=== PATIENT | female | born 2005 | race Two or more races ===

== ENCOUNTER 2025-02-10 13:57 | Emergency (ER) | payer OTHER, SELFPAY ==
[2025-02-10] MEDS ORDERED: PRENTAB9 PO (14:25)
[2025-02-10] MEDS ORDERED: ACET500P3 PO (14:25)
[2025-02-10] MEDS ORDERED: FERR324T21 PO (16:46)
== END 2025-02-10 14:03 | disposition admitted as inpatient to this hospital (09) ==
LOC: M ED 13:57
DX: Z53.21 Procedure and treatment not carried out due to patient leaving prior to being seen by health care provider (principal)

== ENCOUNTER 2025-02-10 14:10 | Outpatient (CLI) | payer OTHER ==
[~2025-02-10] VITALS: Ht 167.6 cm; Wt 60.9 kg
[2025-02-10] MEDS ORDERED: HOME MED LIST COMPLETE! XX SCH (14:25)
[2025-02-10] MEDS ORDERED: ACET500P3 PO (14:25)
[2025-02-10] MEDS ORDERED: PRENTAB9 PO (14:25)
[2025-02-10 14:46] VITALS: BP 109/59
[2025-02-10 15:14] LABS: APPEARANCE, URINE HAZY (CLEAR); BACTERIA, URINE AUTO NEGATIVE (NEGATIVE); BILIRUBIN, URINE AUTO NEGATIVE (NEGATIVE); BLOOD, URINE BLOOD NEGATIVE (NEGATIVE); GLUCOSE, URINE (UA) AUTO NEGATIVE (NEGATIVE); KETONE, URINE AUTO NEGATIVE (NEGATIVE); LEUKOCYTE ESTERASE, URINE AUTO 1+ (NEGATIVE); MUCUS, URINE LARGE (NEGATIVE); NITRITE, URINE AUTO NEGATIVE (NEGATIVE); PROTEIN, URINE AUTO 1+ mg/dL (NEGATIVE); RBC, URINE AUTO 1 /HPF (0-3); SPECIFIC GRAVITY URINE AUTO 1.025 (1.002-1.035); SQUAMOUS EPITHELIAL CELL UR AU 11 /HPF (0-6); UROBILINOGEN, URINE AUTO 2.0 mg/dL (0.0-2.0); WBC, URINE AUTO 11 /HPF (0-3)
[2025-02-10] MEDS: ONDANSETRON 4MG ORAL DISINTEGRATING TAB SL SCH (15:27)
[2025-02-10] MEDS: ACETAMINOPHEN 500 MG TAB PO ONE (15:39)
[2025-02-10 15:43] VITALS: BP 109/59
[2025-02-10 16:03] LABS: BASO # 0.0 10^3/uL (0.0-0.2); BASO % 0.4 % (0.0-1.0); EOS # 0.1 10^3/uL (0.0-0.5); EOS % 0.7 % (0.0-3.0); LYMPH # 1.4 10^3/uL (1.5-5.0); LYMPH % 18.8 % (24.0-44.0); MONO # 0.6 10^3/uL (0.0-0.8); MONO % 7.8 % (2.0-8.0); NEUTROPHILS # 5.4 10^3/uL (1.5-8.5); NEUTROPHILS % 71.6 % (36.0-66.0); PLATELET COUNT, AUTOMATED 275 10^3/uL (150-450)
[2025-02-10] MEDS ORDERED: FERR324T21 PO (16:46)
[2025-02-10 16:55] LABS: HIV 1&2 SCREEN NEGATIVE (NEGATIVE)
[2025-02-10 17:04] LABS: HEPATITIS C VIRUS ABY INDEX < 0.02 INDEX (<0.8)
[2025-02-10 21:01] LABS: Trichomonas vaginalis (AMP) NOT DETECTED (NEGATIVE)
[2025-02-10 21:25] LABS: GC DNA AMPLIFICATION NEGATIVE (NEGATIVE)
[2025-02-13] MEDS ORDERED: AZIT500T5 PO (18:03)
== END 2025-02-10 16:47 | disposition home or self-care (01) ==
LOC: M LDO 14:10
PROVIDERS: ATTEND Advanced Practice Midwife
DX: O26.892 Other specified pregnancy related conditions, second trimester (principal); O21.8 Other vomiting complicating pregnancy; O32.1XX0 Maternal care for breech presentation, not applicable or unspecified; M54.31 Sciatica, right side; Z3A.26 26 weeks gestation of pregnancy
CPT/HCPCS: 36415; 59025; 76811; 81001; 85025; 86762; 86780; 86803; 86850; 86900; 86901; 87088; 87186; 87340; 87389; 87661; 87810; 87850; G0463

== ENCOUNTER → 2025-02-27 | Outpatient (REF) | payer OTHER ==
[~2025-02-27] MED LIST: ACET500P3 PO; AZIT500T5 PO; FERR324T21 PO; PRENTAB9 PO
[2025-02-27 20:30] LABS: GC DNA AMPLIFICATION NEGATIVE (NEGATIVE)
== END ==
LOC: M SFHCLERA 09:18
PROVIDERS: ATTEND Internal Medicine
DX: Z11.3 Encounter for screening for infections with a predominantly sexual mode of transmission (principal)

== ENCOUNTER → 2025-03-11 | Outpatient (CLI) | payer OTHER ==
[2025-03-11 17:51] LABS: PLATELET COUNT, AUTOMATED 236 10^3/uL (150-450)
[2025-03-11 18:03] LABS: GLUCOSE CHALLENGE TEST 1 HOUR 73 MG/DL (LESS THAN 140)
[2025-03-11 18:17] LABS: Trichomonas vaginalis (AMP) NOT DETECTED (NEGATIVE)
[2025-03-11 18:38] LABS: HIV 1&2 SCREEN NEGATIVE (NEGATIVE)
[2025-03-11 18:41] LABS: GC DNA AMPLIFICATION NEGATIVE (NEGATIVE)
[2025-03-11 18:46] LABS: HEPATITIS C VIRUS ABY INDEX < 0.02 INDEX (<0.8)
== END ==
LOC: M PLALAB 14:27
PROVIDERS: ATTEND Advanced Practice Midwife
DX: Z34.83 Encounter for supervision of other normal pregnancy, third trimester (principal)